=== PATIENT | male | born 1990 | race Caucasian/White ===

== ENCOUNTER 2025-09-29 09:30 | Emergency (ER) | payer OTHER, SELFPAY ==
[2025-09-29 09:49] VITALS: BP 112/77; PULSE 81; RESP 18; TEMP 36.2; O2SAT 97; BMI 27.1
--- NOTE | 2025-09-29 09:55 | ED_ITS ---
HPI - General Adult General Chief complaint: Wound/Laceration Stated complaint: laceration work related Time Seen by Provider: 09/29/25 11:35 Source: patient Mode of arrival: ambulatory Limitations: no limitations History of Present Illness ED Provider: Frances Gibson PA-C HPI narrative: Patient is a 34 year old assigned male at with no reported medical history presenting to the emergency department today with a left index finger injury. Patient states that he was using a utility knife at work, a brand new blade, when he accidentally cut his left index finger. Patient states that he is having some numbness in the distal aspect of the left index finger. Patient states that he is right hand dominant. Patient states that he does not know when his last tetanus shot was. . Patient denies any other complaints at this time. Related Data Previous Rx's ?Medication ?Instructions ?Recorded amoxicillin 875 mg-potassium 1 tab PO BID 5 days #10 t abs 09/29/25 clavulanate 125 mg tablet Allergies Allergy/AdvReac Type Severity Reaction Status Date / Time No Known Allergies Allergy Verified 09/29/25 09:52 Review of Systems 2 Constitutional: Constitutional: Reports as per HPI Eyes: Eyes: Reports as per HPI ENT: Reports as per HPI Cardiovascular: Cardiovascular: Reports as per HPI Respiratory: Respiratory: Reports as per HPI Gastrointestinal: Gastrointestinal: Reports as per HPI Genitourinary: Genitourinary: Reports as per HPI Musculoskeletal: Musculoskeletal: Reports as per HPI Integumentary/Breasts: Skin/Breast: Reports as per HPI Neurologic: Reports as per HPI Psychiatric: Psychiatric: Reports as per HPI Endocrine: Endocrine: Reports as per HPI Hematologic/Lymphatic: Hematologic/Lymphatic: Reports as per HPI Allergic/Immunologic: Allergic/Immunologic: Reports as per HPI [facility] Past Medical History Attestation statement: The following information was validated with the patient. Source: old records reviewed and nursing notes reviewed Social History Social History Advance Directives: No Advance Directives Information Provided: Yes Do you have a plan to hurt others: No Plan Physical Exam ED Vital Signs: Vital Signs - 24 hr 09/29/25 09:49 09/29/25 12:39 Temperature 97.2 F 97.2 F Pulse Rate 81 81 Respiratory Rate 18 18 Blood Pressure 112/77 112/77 Pulse Oximetry 97 97 Oxygen Delivery Method Room Air Room Air BMI result Body Mass Index 27.1 Const General: cooperative, no acute distress, alert and awake Nutritional Appearance: well nourished Orientation/consciousness: patient oriented x3 HENMT Head: Yes normal to inspection and Yes atraumatic Ears: hearing grossly normal bilaterally and external ears normal General nose exam: Normal external nose present, no nasal discharge noted and no epistaxis Face and sinus: Yes normal facial exam, No abrasion and No laceration Mouth: Normal oral and palatal mucosa present, no drooling and no muffled voice Eyes General: appearance normal, both eyes and all related structures Periorbital: periorbital findings normal Eyelids: Yes eyelids normal Conjunctivae: conjunctivae normal Pupils: Equal, round and reactive pupils present EOM: EOMs intact bilaterally Neck Neck: Yes normal visual inspection and Yes full ROM Resp Effort & Inspection: normal respiratory effort and able to speak in complete sentences Neuro General: patient oriented x3, moves all extremities and CN's II-XI intact bilaterally Cranial nerves: Yes Equal, round and reactive pupils present Cognition (Neuro): normal cognition Extrem Other: General: Yes capillary refill normal Psych Appearance: grossly normal Mental Status: mental status grossly normal Affect: normal affect Attitude: cooperative Thought process: Normal thought process present Thought content: Normal thought content present Insight: Good insight present (Psych) Course Course Course Narrative: Rapid medical examination performed in triage by Frances Gibson PA-C: Patient is a 34 year old assigned male at presenting to the emergency department with a left index finger laceration. Patient states he was using a utility knife when he accidentally cut his left index finger. Patient states that he is not sure when his last tetanu shot was. Detailed physical exam and review of systems are deferred to the roving teller. Patient placed back in the waiting room pending room availability. Medications Administered Discontinued Medications Generic Name Dose Route Start Last Admin Trade Name Freq PRN Reason Stop Dose Admin Diphtheria/Tetanus/Acell Pertussis 0.5 ml 09/29/25 09:56 09/29/25 11:56 Diphth,Pertus(Acell),Tet Adult 0.5 Ml Syringe IM 09/29/25 09:57 0.5 ml .ONCE ONE Administration Lidocaine HCl 10 ml 09/29/25 11:35 09/29/25 11:59 Lidocaine Hcl 1 % Mpf 5 Ml Vial SUBCUT 09/29/25 11:36 10 ml ONCE ONE Administration Procedures Laceration L index finger: Site: other (finger) Side (If applicable): left Size (cm): 1.5 Description: linear Depth: simple, single layer Local Anesthetic: lidocaine 1% Amount of anesthesia used (mL): 5 Pre-repair: wound explored, irrigated extensively and deep structures intact Skin layer closed with: Prolene Size (cm): 5-0 Number of sutures: 4 Technique: simple, interrupted Nerve Block Nerve Block 1: Time out performed: Yes Local Anesthetic: lidocaine 1% Amount of anesthesia used (mL): 5 Side: left (index) Nerve Blocks: digital Procedure Successful: Yes Patient Tolerated Procedure: well Complications: none Orthopedic Splinting/Casting L index finger: Side: left Upper Extremity Injury Location: finger Upper Extremity Immobilizer: finger (other) Medical Decision Making Medical Decision Making MDM Narrative: Patient is a 34 year old assigned male at with no reported medical history presenting to the emergency department today with a left index finger injury. Patient's physical exam was as noted in the physical exam portion of this note. Patient had full ROM in the left index finger but did have some decreased index finger flexion, unclear if this was secondary to pain. Patient's laceration was not very deep and there was no evidence of tendon or ligament involvement on visualization. I spoke with the orthopedic team given the patient's somewhat decreased distal sensation and ROM. They recommended laceration repair, splinting, prophylactic ABX, and following up on an outpatient basis with their office. I explained my physical exam findings to the patient. I answered all questions asked by the patient. Patient's left index finger laceration was repaired, per procedure note, without incident. Patient's PMS was intact prior to and after laceration repair. Patient's left index finger was splinted, per procedure note, without incident. Patient's PMS was intact prior to and after splint placement. Patient brought up to date with his tetanus status. I stressed the importance of the patient taking his medication as directed (either prescribed or as the over the counter packaging recommends). I stressed the importance of the patient following up with his primary care provider and the orthopedic team. I stressed the importance of the patient returning to the emergency department immediately if his symptoms were to worsen or if he were to develop any dizziness, shortness of breath, difficulty breathing, chest pain, blurry vision, loss of vision, nausea, vomiting, abdominal pain, fever, chills, back pain, or any other complaints. Patient verbalized agreement and understanding with this treatment plan and discharge. Differential Diagnosis Differential Diagnoses: The differential diagnosis associated with the presentation includes Laceration Finger injury Avulsion Tendon injury Admission/Observation Consideration of admission/observation: Escalation of care including admission/observation considered Patient would have been admitted to the hospital had his work up had any findings where hospital admission was appropriate and his clinical presentation warranted hospital admission. Consult Healthcare Provider Management of the patient was discussed with: Pan Pusher (spoke with the orthopedic team as noted in the MDM Rationale portion of this note. ) Tests considered The following testing was considered but not selected: I considered obtaining an x-ray of the left index finger however, the patient's current clinical presentation and mechanism of injury did not warrant this at this time. Prescription Management I considered prescription management with: Antibiotic (patient prescribed a prophylactic antibiotic as noted in the MDM Rationale portion of this note. ) Discharge Plan Discharge Clinical Impression: Laceration Patient Disposition: Home, Self-Care Instructions: Care For Your Stitches (DC), Finger Laceration (ED) Additional Instructions: Your laceration was repaired with (4) sutures. It is normal for the wound to ooze blood over the next few hours. IF the bleeding becomes excessive or you become concerned, please do not hesitate to return to the emergency department. Have these sutures removed in 7-10 days. They can be removed by your primary care provider, at any urgent care by their provider, or at any emergency department by any of their providers. Given the concern of possible left index finger tendon injury - you have been placed in a finger splint. Do NOT remove the splint. Do NOT get the splint wet. If you have increased numbness / tingling in the left index finger you can loosen the outer wrap. If you find yourself loosening the wrap to the point where you see the white splint material underneath - STOP and proceed to your nearest ER. Do NOT get the left index finger wet. Avoid ALL bodies of water - this including pools, lakes, ty, oceans, streams, puddles, etc. until your sutures have been removed and the wound has F ULLY healed (no open areas, no scabbing). IF you are concerned about scarring, once the sutures have been removed and the scabbing has fallen away - apply sunscreen to the area every day for 1 full year . Be sure to follow up with the orthopedic / hand team and take your antibiotic as directed. IF you are prescribed home medications and/or you are taking over the counter medications at home - it is very important you continue to do so as prescribed / directed unless told otherwise by a healthcare provider. Follow up with your primary care provider. Given this was a work place injury, you should follow up with [facility]. Do your best to stay well hydrated and rest. Return to the emergency department immediately if your symptoms worsen or if you develop any numbness, tingling, dizziness, shortness of breath, difficulty breathing, chest pain, blurry vision, loss of vision, nausea, vomiting, abdominal pain, fever, chills, back pain, or any other complaints. If you do not have a primary care provider - call any of the below numbers to establish and follow up with a primary care provider. [facility] ([place]) [phone] [place] [address], [address] [facility] ([address] [place]) [phone] [place] [address], [address] [facility], [address] [facility] ([address] [place]) [phone] [place] [address], [address] [facility], [address] [facility] ([place]) [phone] [place] [address], [address] [facility], [address] [facility] [phone] [place] [address], [id number] Please see the information below about our Patient Portal. If you are not yet enrolled in the [facility] Patient Portal, you will receive an enrollment email invitation following your visit to any [facility] setting. You may also self-enroll in the Patient Portal by visiting our website: [email or web address] The following information is required to access the Patient Portal: - Your [facility] Medical Record Number - Your personal home email address (must match what is in your electronic medical record, Registration staff can assist with this) - Name - Date of Capabilities of the Patient Portal: - Message some providers - View upcoming appointments - Access your health summary, medical history, and visit history - View current conditions and allergies - View procedure and lab results - View your medications, including guidelines, side effects, and precautions - Complete pre-appointment questionnaires requested by your provider - Ready summary reports of your office visits and procedures To access the Patient Portal Mobile [employer], follow these directions: - Search Personal Medicine in the [employer] Store or [employer] Store - Download the [employer] - Search for [facility] - Enter your login/password Prescriptions: New amoxicillin-pot clavulanate 875-125 mg tablet 1 tab PO BID 5 Days Qty: 10 0RF Referrals: [facility] [Provider Group] Referral Note: Call to establish and follow up with the orthopedic team for your left index finger injury. [facility] [Provider Group] Referral Note: Call to establish and follow up with [facility] given this was a work place injury. Stand Alone Forms: Work/School Release Interventions: ED Discharge Assessment Last Done: 09/29/25 12:39 Discharge Date/Time: 09/29/25 12:40 Print Language: Azeri
[2025-09-29] MEDS: Diphth,Pertus(ACell),Tet Adult 0.5 ML SYRINGE IM (11:56)
[2025-09-29] MEDS: Lidocaine HCl 1 % MPF 5 ML VIAL 10 ML SUBCUT (11:59)
[2025-09-29 12:39] VITALS: BP 112/77; PULSE 81; RESP 18; TEMP 36.2; O2SAT 97
== END 2025-09-29 12:40 | disposition home or self-care (01) ==
PROVIDERS: Emergency Provider Emergency Medicine
DX: S61.211A Laceration without foreign body of left index finger without damage to nail, initial encounter (principal); W27.8XXA Contact with other nonpowered hand tool, initial encounter; M79.645 Pain in left finger(s); Y93.89 Activity, other specified; Y92.513 Shop (commercial) as the place of occurrence of the external cause; Y99.0 Civilian activity done for income or pay
CPT/HCPCS: 12001; 29130; 90471; 90715; 99282; 99284; J2003